=== PATIENT | male | born 1950 | race Caucasian/White ===

== ENCOUNTER 2017-10-03 15:51 | Emergency (ER) | payer MEDICARE ==
[~2017-10-03] VITALS: Ht 180.3 cm; Wt 91.8 kg
[~2017-10-03 15:51] MED LIST: AMOXICILLIN 50500 MG PO; AMOXICILLIN 8751 TAB PO; ASPIRIN E.C. 8181 MG PO; COLACE 100100 MG/CAP PO; DIABETA5 MG PO; FOLIC ACID 11 MG/TA1 PO; FORTAMET1000 MG PO; GLIPIZIDE5 MG PO; GLUCOPHAGE1000 MG PO; GLUCOTROL 5M5 MG/TAB PO; LISINOPRIL-HYDR1 TA1 PO; MULTIPLE VITAMI1 CAP PO; NORCO 325 MG-51 TAB PO; PERIDEX (CHLOR480 ML MM; THIAMINE 1100 MG/TAB PO; VALIUM10 MG PO; ZESTORETIC 12.51 TA1 PO; ZOCOR 40MG40 MG PO; ZYPREXA 5MG5 MG PO; ZYPREXA5 MG PO
[2017-10-03 15:55] VITALS: BP 180/100; PULSE 101; TEMP 98.2
[2017-10-03] MEDS ORDERED: NORCO 325 MG-51 TAB PO (17:13)
[2017-10-03] MEDS ORDERED: PEN-VEE K500 MG PO (17:13)
== END 2017-10-03 17:35 | disposition home or self-care (01) ==
LOC: COL.ER 15:51
DX: K08.89 Other specified disorders of teeth and supporting structures (principal); Z79.82 Long term (current) use of aspirin; Z79.84 Long term (current) use of oral hypoglycemic drugs

== ENCOUNTER 2018-03-04 14:14 | Emergency (ER) | payer MEDICARE ==
[~2018-03-04] VITALS: Ht 180.3 cm; Wt 92.3 kg
[~2018-03-04 14:14] MED LIST changes: +PEN-VEE K500 MG PO
[2018-03-04 14:21] VITALS: TEMP 98.1
[2018-03-04] MEDS ORDERED: NORCO 325 MG-51 TAB PO (15:17)
[2018-03-04] MEDS ORDERED: AMOXICILLIN 50500 MG PO (15:17)
[2018-03-04 15:53] VITALS: BP 179/102; PULSE 72
== END 2018-03-04 15:55 | disposition home or self-care (01) ==
LOC: COL.ER 14:14
DX: K02.9 Dental caries, unspecified (principal); I10 Essential (primary) hypertension; E11.9 Type 2 diabetes mellitus without complications; E78.5 Hyperlipidemia, unspecified; Z87.891 Personal history of nicotine dependence; Z79.82 Long term (current) use of aspirin; Z79.84 Long term (current) use of oral hypoglycemic drugs